=== PATIENT | male | born 1970 | race Caucasian/White ===

== ENCOUNTER 2025-04-26 10:08 | Emergency (ER) | payer BC, OTHER ==
[2025-04-26 10:46] LABS: BASOPHILS PERCENT AUTO 0.2 % (0.0-1.0); HEMATOCRIT 45.6 % (42.0-52.0); HEMOGLOBIN 15.6 gm/dl (14.0-18.0); IMMATURE GRAN ABSOLUTE AUTO 0.03 K/mm3 (0.00-0.05); IMMATURE GRAN PERCENT AUTO 0.3 % (0.0-0.4); LYMPHOCYTES ABSOLUTE AUTO 1.2 K/mm3 (1.0-4.8); LYMPHOCYTES PERCENT AUTO 10.9 % (24.0-44.0); MEAN CORPUSCULAR HEMOGLOBIN 29.5 pg (28.0-32.0); MEAN CORPUSCULAR HGB CONC 34.2 g/dl (32.0-36.0); MEAN CORPUSCULAR VOLUME 86.2 fl (83.0-99.0); MONOCYTES ABSOLUTE AUTO 0.4 K/mm3 (0.0-0.8); MONOCYTES PERCENT AUTO 3.6 % (0.0-8.0); NEUTROPHILS ABSOLUTE AUTO 9.1 K/mm3 (1.8-7.7); PLATELET COUNT,PLT 254 K/mm3 (150-400); RED BLOOD CELL COUNT 5.29 M/mm3 (4.52-5.90); WHITE BLOOD CELL COUNT,WBC 10.65 K/mm3 (3.9-11.3)
[2025-04-26 11:05] LABS: A/G RATIO 1.2 (1-2); ALBUMIN 4.1 g/dl (3.4-5.0); ANION GAP 13.8 (5-15); BILIRUBIN TOTAL 0.8 mg/dL (0.2-1.0); CALCIUM 9.4 mg/dL (8.5-10.1); CREATININE 0.8 mg/dL (0.7-1.3); EST CRCL DRUG DOSING (CG) 89.69 mL/min; MAGNESIUM 1.9 mg/dL (1.8-2.4); POTASSIUM,K 3.8 mEq/L (3.5-5.1); PROTEIN TOTAL,TP 7.5 g/dl (6.4-8.2)
[2025-04-26] MEDS: Heparin Sodium 5,000 Units/ML Vial IVPUSH ONE (11:18)
[2025-04-26] MEDS: Sodium Chloride 0.9% 10 ML Syringe FLUSH PRN (11:18)
[2025-04-26] MEDS: Heparin Sodium/D5W 250 ML IV SCH (11:18)
[2025-04-26] MEDS: Aspirin 81 MG Tab.Chew PO ONE (11:44)
== END 2025-04-26 12:26 ==
LOC: JD.ED 10:08
DX: I21.4 Non-ST elevation (NSTEMI) myocardial infarction (principal)
CPT/HCPCS: 36415; 71045; 80053; 83735; 84484; 85025; 85730; 93005; 96365; 99285; A9270; J1644